=== PATIENT | male | born 1985 | race Caucasian/White ===

== ENCOUNTER 2020-06-17 17:38 | Emergency (ER) | payer SELFPAY ==
[~2020-06-17] VITALS: Ht 185.4 cm; Wt 104.0 kg
[2020-06-17 17:52] VITALS: BP 146/93
[2020-06-17] MEDS ORDERED: ACETAMINOPHEN 325MG TABLET PO ONE (19:15)
[2020-06-17] MEDS ORDERED: KETOROLAC 60MG/2ML VIAL IM ONE (19:15)
== END 2020-06-17 20:29 | disposition left against medical advice (07) ==
LOC: ER 17:38
DX: S09.8XXA Other specified injuries of head, initial encounter (principal); W22.8XXA Striking against or struck by other objects, initial encounter; Y93.89 Activity, other specified; Y92.69 Other specified industrial and construction area as the place of occurrence of the external cause
CPT/HCPCS: 99281; J1885